=== PATIENT | male | born 2000 | race Caucasian/White ===

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

== ENCOUNTER 2023-04-28 14:13 | Emergency (ER) | payer BC, SELFPAY ==
[2023-04-28 14:22] VITALS: BP 122/87; PULSE 88; RESP 18; TEMP 37; O2SAT 97
--- NOTE | 2023-04-28 15:55 | ED.EAR ---
HPI - Ear Problem General Chief complaint: Ear Stated complaint: left ear pain Source: patient Mode of arrival: ambulatory Limitations: no limitations History of Present Illness HPI Narrative: Patient presents for evaluation of left-sided ear pain for last 2 days. He has muffled hearing on the left side. No tinnitus or drainage from the ear. He notes that the pain is worse when he swallows. He has a history of otitis media and this feels similar. He recently spent time with a cousin has some respiratory symptoms. No fever, chills nausea, cough, or shortness of breath. He is not taking any medications to assist with the symptoms. Related Data Home Medications Medication Instructions Recorded Confirmed citalopram 40 mg tablet 40 mg PO DAILY 04/28/23 04/28/23 Allergies Allergy/AdvReac Type Severity Reaction Status Date / Time No Known Allergies Allergy Verified 04/28/23 14:21 Review of Systems Review of Systems: CONSTITUTIONAL: Denies fever, chills, or sweats. EYES: Denies visual changes, redness, or discharge. ENT: It is left-sided ear pain and decreased hearing on the left. Denies tinnitus or drainage from left ear. CARDIOVASCULAR: Denies chest pain, palpitations, or edema. RESPIRATORY: Denies cough or dyspnea. GASTROINTESTINAL: Denies abdominal pain, nausea, vomiting, or diarrhea. GENITOURINARY: Denies dysuria or hematuria. SKIN: Denies rash or itching. MUSCULOSKELETAL: Denies back pain, joint pain, or myalgia. NEUROLOGIC: Denies headache, numbness, dizziness, or weakness. PSYCHIATRIC: Denies anxiety or depression. [facility] Past Medical History Medical History No pertinent past medical history Surgical History Surgical History No pertinent past surgical history Family History Family History (Updated 04/28/23 @ 15:58 by WILLIAM Jeong, ) Mother Family history non-contributory Social History Social History Substance use: never Gender identity (if verbalized by the patient): Male Spiritual care concerns: No Exam Narrative: GENERAL: Well-appearing, well-nourished, and in no acute distress. HEAD: Normocephalic, atraumatic. EYES: PERRLA and EOMI. ENT: Nares clear, no rhinorrhea or epistaxis. Mucous membranes moist. Oropharynx without tonsillar hypertrophy exudate or other lesions. Left tympanic membrane is erythematous and bulging. There is swelling noted to left ear canal. NECK: Supple. No adenopathy or masses. No carotid bruits or JVD CHEST: Clear to auscultation. No respiratory distress. No wheezes rales or rhonchi HEART: Regular rate and rhythm. No murmur heard. Normal peripheral pulses. ABDOMEN: Soft, nontender, nondistended, normal active bowel sounds. EXTREMITIES: Normal range of motion. No edema. SKIN: Warm, dry, no rash. NEURO: No focal deficits. Alert and oriented x3. PSYCH: Normal mood and affect. Course Course Emergency Course: This is a 23-year-old male who presented for evaluation of left-sided ear pain. Interestingly enough he has both otitis externa and otitis media. Will treat with Augmentin and ofloxacin. Follow up primary provider. Go to the ER for worsening symptoms. Patient in agreement care per Level of Care: Express Care Visit Vital Signs Vital signs: Vital Signs Temperature 37.0 C 04/28/23 14:22 Pulse Rate 88 04/28/23 14:22 Respiratory Rate 18 04/28/23 14:22 Blood Pressure 122/87 04/28/23 14:22 Pulse Oximetry 97 04/28/23 14:22 Oxygen Delivery Room Air 04/28/23 14:22 Temperature 37.0 C 04/28/23 14:22 Pulse Rate 88 04/28/23 14:22 Respiratory Rate 18 04/28/23 14:22 Blood Pressure 122/87 04/28/23 14:22 Pulse Oximetry 97 04/28/23 14:22 Oxygen Delivery Room Air 04/28/23 14:22 Medical Decision Making Vital Si
== END 2023-04-28 15:57 | disposition home or self-care (01) ==
PROVIDERS: Emergency Provider Nurse Practitioner
DX: H60.502 Unspecified acute noninfective otitis externa, left ear (principal); H66.90 Otitis media, unspecified, unspecified ear; Z79.899 Other long term (current) drug therapy
CPT/HCPCS: 99203; G0463